=== PATIENT | male | born 1995 | race Caucasian/White ===

== ENCOUNTER 2018-09-29 08:33 | Day surgery (SDC) | payer BC, OTHER ==
--- OUTSIDE RECORDS SUMMARY | 2018-09-29 08:36 | XMS REPORT ---
:1995 [facility] Organization [facility] Address [address] [place] [address] Dr. Sauceda [address] [place] [id number] Care Team Providers Name Role Phone Unavailable Unavailable Unavailable Problems This patient has no known problems. Allergies, Adverse Reactions, Alerts This patient has no known allergies or adverse reactions. Medications This patient has no known medications.
[2018-09-29] MEDS ORDERED: Ringers Lactate 1,000 ML IV ONE (09:09)
[2018-09-29] MEDS ORDERED: GENTAMICIN 80 MG/100 ML BAG 80 MG/100 ML BAG IV ONE (09:09)
[2018-09-29] MEDS ORDERED: BUPIVACAINE 0.25% PF 10 ML VIAL ONE ×2 (11:20→12:24)
[2018-09-29] MEDS ORDERED: LIDOCAINE 1% MPF 30 ML VIAL ONE (11:21)
[2018-09-29] MEDS ORDERED: PROPOFOL 200 MG/20 ML VIAL IV ONE ×2 (11:57→12:25)
[2018-09-29] MEDS ORDERED: FENTANYL CITR 100 MCG/2 ML ONE ×2 (11:58→12:41)
[2018-09-29] MEDS ORDERED: LIDOCAINE 2% MPF 5 ML VIAL ONE (11:58)
[2018-09-29] MEDS ORDERED: MIDAZOLAM HCL 2 MG/2 ML INJ ONE (11:58)
[2018-09-29] MEDS ORDERED: ONDANSETRON 4 MG/2 ML VIAL ONE (12:20)
[2018-09-29] MEDS ORDERED: ROCURONIUM 50 MG/5 ML VIAL IV ONE (12:21)
[2018-09-29] MEDS ORDERED: BUPIVACAINE 0.5% PF 10 ML VIAL ONE (12:22)
[2018-09-29] MEDS ORDERED: HYDROCODONE/APAP 10/325 TAB ONE (14:26)
== END 2018-09-29 15:08 | disposition home or self-care (01) ==
LOC: OR 08:33
PROVIDERS: ATTEND Urology
PROC: 0VQ60ZZ Repair Right Tunica Vaginalis, Open Approach (ICD-10-PCS; 2018-09-29)
PROC: 0VBJ0ZZ Excision of Right Epididymis, Open Approach (ICD-10-PCS; principal; 2018-09-29 10:45)
DX: N43.41 Spermatocele of epididymis, single (principal); N43.3 Hydrocele, unspecified; E29.1 Testicular hypofunction; R53.83 Other fatigue; E03.9 Hypothyroidism, unspecified; F41.9 Anxiety disorder, unspecified; F32.9 Major depressive disorder, single episode, unspecified; G47.30 Sleep apnea, unspecified; Z79.82 Long term (current) use of aspirin; Z79.899 Other long term (current) drug therapy
CPT/HCPCS: 88108; 88304; J1580; J2250; J2405; J2704; J3010